=== PATIENT | male | born 1990 | race Caucasian/White ===

== ENCOUNTER → 2020-01-11 | Emergency (ER) | payer MEDICAID ==
[~2020-01-11] VITALS: Ht 167.6 cm; Wt 118.2 kg
[~2020-01-11] MED LIST: NAPROSYN500 MG PO; VIBRAMYCIN 100100 MG PO
[2020-01-11 17:32] VITALS: BP 109/68; Ht 167.6 cm; Wt 118.2 kg
== END | disposition home or self-care (01) ==
LOC: D.ER 17:22
DX: L03.317 Cellulitis of buttock (principal)